=== PATIENT | female | born 1955 | race Caucasian/White ===

== ENCOUNTER 2019-04-22 08:38 | Outpatient (CLI) | payer MEDICARE, SELFPAY ==
[2019-04-22 11:45] LABS: CREATININE 0.74 mg/dL (0.55-1.02); Calculated LDL 198; Cholesterol 279 mg/dL (50-200); HDL Cholesterol 50 mg/dL (40-60); Potassium 4.8 mmol/L (3.5-5.1); Triglyceride 159 mg/dL (30-150)
== END 2019-04-22 08:58 ==
PROVIDERS: PCP Family Medicine; Visit Provider Family Medicine
DX: I10 Essential (primary) hypertension (principal)
CPT/HCPCS: 36415; 80061; 83721; 82565; 84132

== ENCOUNTER 2019-05-05 01:03 | Outpatient (CLI) | payer MEDICARE, SELFPAY ==
--- NOTE | 2019-05-05 15:48 | DI.MAMMO_ITS ---
SYMPTOMS/DIAGNOSIS: SCREENING, Z12.31 MAMMOGRAM: Mammograms were interpreted according to the usual protocol including computer analysis with CAD system, tomosynthesis and C view imaging. The breasts are of moderate density with fairly symmetrical distribution of fibroglandular tissue. No dominant mass or clumped microcalcification is identified in either breast. Current examination is compared with the previous examinations including January 2018 and there has been no gross interval change in appearnce in comparison with the previous studies. CONCLUSION: No specific evidence of malignancy at this time. Routine screening exainations are suggested at yearly intervals due to the family history of breast carcinoma. Category 1, breast density category B. MQSA ASSESSMENT OF FINDINGS: Negative. Category 1. Patient will receive a letter notifying them of these results. BI-RADS category B. There are scattered areas of fibroglandular density.
== END 2019-05-05 01:23 ==
PROVIDERS: PCP Family Medicine; Visit Provider Family Medicine
DX: Z12.31 Encounter for screening mammogram for malignant neoplasm of breast (principal); Z80.3 Family history of malignant neoplasm of breast
CPT/HCPCS: 77063; 77067

== ENCOUNTER 2020-04-27 09:41 | Outpatient (CLI) | payer MEDICARE, SELFPAY ==
[2020-04-28 02:21] LABS: COVID-19 RT-PCR UVMMC Result Negative (Negative)
== END 2020-04-27 10:01 ==
PROVIDERS: PCP Family Medicine; Visit Provider Family Medicine
DX: R06.02 Shortness of breath (principal)
CPT/HCPCS: U0003

== ENCOUNTER 2020-05-07 03:10 | Outpatient (CLI) | payer MEDICARE, SELFPAY ==
[2020-05-07 13:27] LABS: COMMENT (LAB VIEW ONLY) 51.02 mg/dL; Microalb ug/mg Crea 17.2 ug/mg Cr
[2020-05-07 13:29] LABS: CREATININE 0.89 mg/dL (0.55-1.02); Calculated LDL 181 mg/dL (<100); Cholesterol 289 mg/dL (<200); HDL Cholesterol 38 mg/dL (40-60); Potassium 3.9 mmol/L (3.5-5.1); Triglyceride 351 mg/dL (<150)
== END 2020-05-07 03:30 ==
PROVIDERS: PCP Family Medicine; Visit Provider Family Medicine
DX: I10 Essential (primary) hypertension (principal); E78.5 Hyperlipidemia, unspecified; E11.9 Type 2 diabetes mellitus without complications
CPT/HCPCS: 36415; 80061; 82043; 82565; 82570; 84132

== ENCOUNTER 2020-05-22 22:36 | Outpatient (REF) | payer MEDICARE, SELFPAY ==
[2020-05-22 21:38] LABS: HGB 14.5 g/dL (12.0-15.5); Mean Corpuscular Hemoglobin 28.3 pg (27.0-33.0); Mean Corpuscular Volume 85.9 fL (80-95); Mean Platelet Volume 11.5 fL (8.0-11.0); Platelet Count 281 x1000/uL (130-400); RBC 5.12 m/cumm (4.00-5.20); RBC Distribution Width 13.4 % (11.7-14.6); White Blood Cell Count 6.04 k/cumm (4.4-10.8)
[2020-05-22 21:56] LABS: Anion Gap 12.5 mmol/L (3-11); BUN 20 mg/dL (7-18); CO2 24.5 mmol/L (21.0-32.0); CREATININE 0.89 mg/dL (0.55-1.02); Calcium 10.1 mg/dL (8.5-10.1); Chloride 100 mmol/L (98-107); Glucose 96 mg/dL (74-106); Sodium 137 mmol/L (136-145)
== END 2020-05-22 22:56 ==
LOC: LBN 22:36
PROVIDERS: PCP Family Medicine; Visit Provider Nurse Practitioner
DX: I10 Essential (primary) hypertension (principal); R10.9 Unspecified abdominal pain
CPT/HCPCS: 80048; 85027

== ENCOUNTER 2020-05-28 01:37 | Outpatient (CLI) | payer MEDICARE, SELFPAY ==
--- NOTE | 2020-05-28 06:52 | DI.CT_ITS ---
EXAM: CT ABDOMEN PELVIS W CLINICAL HISTORY: abdominal pain- profusely tender, NL WBC,R10.9 TECHNIQUE: Imaging Protocol: Axial computed tomography images with coronal and sagittal reformatted images were created and reviewed CONTRAST MATERIAL: Intravenous: Omnipaque 350 Contrast volume:100 mL Oral: Yes COMPARISON: CT ABD PELVIS WITH CONTRAST from 04/23/2017 FINDINGS: ABDOMEN: Lung Bases: Normal where visualized. Liver: Fatty infiltration of the liver. No measurable mass. Portal, Superior Mesenteric, and Splenic Veins: Unremarkable. Gallbladder and Biliary Tract: No radiodense calculus or dilation. Pancreas: Normal density, no abnormal calcifications or inflammatory process. Spleen: Normal. Adrenals: No masses seen. Kidneys: Normal size, contour and axis. No radiodense stones or obstructive uropathy. Multiple bilate ral simple renal cysts. Abdominal Aorta: Abdominal portion non-dilated. Atherosclerosis. Left renal vein: Circum aortic left renal vein. Bowel: No obstruction or bowel wall thickening. Appendix is unremarkable. Extensive colonic diverticu losis but no evidence of acute diverticulitis. Small hiatal hernia. Peritoneal Cavity: No ascites, collection or mesenteric inflammatory response. Lymph Nodes: Within normal limits. Bones: Degenerative changes. Soft Tissues: Unremarkable. PELVIS: Bladder: Symmetric distention, no gross wall thickening. Reproductive Organs: Unremarkable as visualized. Lymph Nodes: Within normal limits. Bones: Degenerative changes. IMPRESSION: No evidence of an acute abdominal or pelvic process. Incidental findings in the abdomen and pelvis as described above. RADIATION DOSE DELIVERED: Total DLP DATA REPOSITORY: All CT scans at this facility are submitted to the National Radiology Data Registry (NRDR) Dose Index Registry (DIR) with the [employer] (ACR). RADIATION OPTIMIZATION: All CT scans at this facility use at least one of these dose optimization te chniques: automated exposure control; mA and/or kV adjustment per patient size (includes targeted exa ms where dose is matched to clinical indication); or iterative reconstruction.
[2020-05-28] MEDS: Breeza Beverage 473 ML BTL PO ×3 (08:01→08:07)
[2020-05-28] MEDS: Omnipaque 350 MG/ML 50 ML BTL IJ (08:05)
[2020-05-28] MEDS: Omnipaque 350 MG/ML 100 ML BTL IJ (09:31)
[2020-05-28] MEDS: Normal Saline - Diluent 50 ML VIAL IV (09:34)
== END 2020-05-28 01:57 ==
PROVIDERS: PCP Family Medicine; Visit Provider Nurse Practitioner
DX: R10.9 Unspecified abdominal pain (principal); K57.30 Diverticulosis of large intestine without perforation or abscess without bleeding
CPT/HCPCS: 74177; J3490; Q9967

== ENCOUNTER 2021-06-11 03:25 | Outpatient (CLI) | payer MEDICARE, SELFPAY ==
[2021-06-11 12:26] LABS: CREATININE 0.8 mg/dL (0.55-1.02); Calculated LDL 213 mg/dL (<100); Cholesterol 324 mg/dL (<200); HDL Cholesterol 42 mg/dL (40-60); Triglyceride 345 mg/dL (<150)
== END 2021-06-11 03:26 | disposition home or self-care (01) ==
LOC: LOS 03:28
PROVIDERS: PCP Family Medicine; Visit Provider Family Medicine
DX: I10 Essential (primary) hypertension (principal); E78.5 Hyperlipidemia, unspecified; E11.65 Type 2 diabetes mellitus with hyperglycemia
CPT/HCPCS: 36415; 80061; 82565; 84132

== ENCOUNTER 2021-06-24 01:59 | Outpatient (CLI) | payer MEDICARE, SELFPAY ==
--- NOTE | 2021-06-24 08:15 | DI.MAMMO_ITS ---
Exam(s) MAMMO SCREENING EXAM: MAMMO SCREENING CLINICAL HISTORY: screening,Z12.39. TECHNIQUE: Bilateral full field digital CC and MLO mammographic images were obtained with 3D tomosyn thesis and utilizing computer aided detection (CAD). COMPARISON: Prior mammograms dating back to 2011, the most recent being April 2019.. Family history. Her mother had breast cancer diagnosed in her late 60s. FINDINGS: There has been no significant change in the appearance and distribution of the fibroglandular tissue. There are no new spiculated masses nor malignant appearing microcalcification groups. There is no significant architectural distortion nor skin thickening-retraction. IMPRESSION: No radiographic evidence of malignancy. BI-RADS Category 1 - Negative Breast Density - Category B - Scattered areas of fibroglandular density Breast density Category C or D implies that the patient has dense breast tissue. Dense breast tissue can make it harder to find cancer on a mammogram. Dense breast tissue is also associated with an incr eased risk of breast cancer. This information about the result of the mammogram report was provided to the patient to raise their awareness. Use this report when you speak with the patient about their risks for breast cancer, which includes their family history. At that time, you may recommend additional screening tests (Ultrasoun d or MRI) as these tests may add significant information. A negative radiographic report should not delay biopsy if a dominant or clinically suspicious mass is present. Up to ten percent of cancers are not identified on mammography. A negative report may reinforce clinical impression. Adenosis and dense breasts may obscure an underlying neoplasm. False positive reports average 6 to 10%. Patient will receive a letter notifying them of these results.
== END 2021-06-24 02:19 ==
PROVIDERS: PCP Family Medicine; Visit Provider Family Medicine
DX: Z12.31 Encounter for screening mammogram for malignant neoplasm of breast (principal); Z80.3 Family history of malignant neoplasm of breast
CPT/HCPCS: 77063; 77067

== ENCOUNTER 2022-06-13 01:02 | Outpatient (CLI) | payer MEDICARE, SELFPAY ==
[2022-06-13 12:49] LABS: Anion Gap 8.1 mmol/L (3-11); BUN 25 mg/dL (7-18); CO2 27.9 mmol/L (21.0-32.0); CREATININE 0.7 mg/dL (0.55-1.02); Calcium 9.1 mg/dL (8.5-10.1); Calculated LDL 230 mg/dL (<100); Chloride 102 mmol/L (98-107); Cholesterol 304 mg/dL (<200); Glucose 101 mg/dL (74-106); HDL Cholesterol 48 mg/dL (40-60); Sodium 138 mmol/L (136-145); Triglyceride 131 mg/dL (<150)
== END 2022-06-13 01:03 | disposition home or self-care (01) ==
LOC: LOS 01:04
PROVIDERS: PCP Family Medicine; Visit Provider Family Medicine
DX: E78.5 Hyperlipidemia, unspecified (principal); E87.1 Hypo-osmolality and hyponatremia
CPT/HCPCS: 36415; 80048; 80061

== ENCOUNTER 2022-08-03 18:18 | Emergency (ER) | payer MEDICARE, SELFPAY ==
[2022-08-03 18:24] VITALS: BP 138/79; PULSE 87; RESP 18; TEMP 36.6; O2SAT 96
[2022-08-03 19:04] LABS: Abs Immature Grans 0.01 10^3/uL (0.0-0.06); Absolute Basophil Count 0.02 10^3/uL (0.0-0.2); Absolute Lymphocyte Count 1.98 10^3/uL (1.2-3.4); Absolute Monocyte Count 0.45 10^3/uL (0.1-0.8); Absolute Neutrophil Count 3.61 10^3/uL (1.2-6.7); Basophils % 0.3; Eosinophils % 1.6; HCT 43.9 % (36.0-46.0); HGB 14.5 g/dL (11.2-15.7); Immature Grans % 0.2; Lymphocytes % 32.1; MCH 27.6 pg (27.0-33.0); MCV 84 fL (80-95); MPV 11.1 fL (8.0-11.0); Monocytes % 7.3; Neutrophils % 58.5; Platelet Count 241 10^3/uL (130-400); RBC 5.25 10^6/uL (3.93-5.22); RDW 12.8 % (11.7-14.6); RDW-SD 39.1 fL; WBC 6.17 10^3/uL (4.4-10.8)
[2022-08-03 19:10] LABS: Bilirubin Negative (Negative); Blood Negative (Negative); Clarity Clear (Clear); Glucose Negative (Negative); Ketones Negative (Negative); Leukocyte Esterase Trace (Negative); Nitrite Negative (Negative); Specific Gravity 1.015 (1.005-1.025); Urobilinogen 0.2 EU/dL (Up TO 0.2); pH 5.5 (5-8)
--- NOTE | 2022-08-03 19:10 | W.ED.GENAD ---
Discharge Plan Disposition Patient Disposition: HOME Condition: Stable Discharge Details Clinical Impression: Diverticulitis, Disorder of Bartholin's gland Primary Care Provider: Ernesto Orellana ED Provider: Walker Ghosh Home Meds and New Rx's Prescriptions: Continued krill oil 500 mg capsule See Rx Instructions PO DAILY Rx Instructions: Q1 400mg Capsules PO DAILY orally daily; cholecalciferol (vitamin D3) 50 mcg (2,000 unit) tablet 50 mcg PO DAILY amoxicillin-pot clavulanate 875-125 mg tablet 1 tab PO TID Qty: 21 0RF loratadine [Allergy Relief (loratadine)] 10 mg tablet 10 mg PO DAILY Qty: 90 3RF vitamin B complex [B Complex-Vitamin B12] Tablet 1 tab PO DAILY lisinopril-hydrochlorothiazide 20-25 mg tablet 1 tab PO DAILY Qty: 90 3RF Rx Instructions: 02/2018 increased dose/take one tablet daily calcium carb and citrat-mag ox 200 mg calcium- 50 mg tablet PO Hair,Skin and Nails Tablet 1 tab PO DAILY omeprazole 20 mg capsule,delayed release(DR/EC) 20 mg PO DAILY Qty: 90 3RF rosuvastatin 20 mg tablet 20 mg PO DAILY Qty: 90 3RF Discharge Instructions Instructions: Diverticulitis (ED) Additional Instructions: CT reveals mild diverticulitis, please continue your Augmentin as directed. Hydrocodone take-home pack as directed, this medication may cause drowsiness and constipation. You may also take [id number] medications for symptomatic control. The CT incidentally found an enlarged Bartholin gland which needs to be followed by women's health. I have placed you on their list to help expedite outpatient care. Please contact your primary care provider and women's health tomorrow to discuss your ER visit and need for outpatient reevaluation peer Referrals: [facility] [Provider [facility]] Medical Decision Making 67-year-old female being treated with Augmentin for presumptive diverticulitis for the past 5 days reports that diarrhea began today, concern for worsening symptoms, came for CT imaging. Clinically she appears well, nontoxic, nonfebrile, abdomen is benign on acute. She does have mild lower abdominal discomfort. Plan is to obtain IV access and obtain routine screening laboratory values and CT imaging. Laboratory values are unremarkable. Patient reports increased pain, 4 mg IV morphine provided. Patient reports significant relief CT imaging reveals mild diverticulitis as well as an enlarged right Bartholin gland Discussed findings with patient. Given her lack of fever or elevated white count, only mild diverticulitis, I do not believe that dual therapy is indicated and she will continue with her Augmentin. Given her enlarged right Bartholin gland, I have placed her on the care management list to help expedite outpatient women's wellness evaluation and I will give her a referral. I will also give her a take-home pack of hydrocodone. Standard discharge and return precautions were provided. Patient understands, is agreeable to this plan, and has no additional questions or concerns upon discharge. This documentation was generated using [employer] system, please disregard any oddities of phrase or misspellings. Medical Records Medical records reviewed: Yes I reviewed the patient's medical records. Imaging Data Radiologic Study: Attestation: I personally reviewed and interpreted this imaging study as follows: Imaging: CT Scan Radiologist's impression: PROCEDURE INFORMATION: Exam: CT Abdomen And Pelvis With Contrast Exam date and time: 08/03/2022 8:22 PM Age: 67 years old Clinical indication: Abdominal pain; Localized; Left lower quadrant (llq); Patient HX: Llq pain, concern for diverticulitis TECHNIQUE: Imaging protocol: Computed tomography of the abdomen and pelvis with contrast. COMPARISON: CT ABDOMEN PELVIS W 05/28/2020 9:22 AM FINDINGS: Lungs: The visualized lung hyde show mild bibasilar atelectasis. Diaphragm: There is a small sliding hiatal hernia. Liver: No hepatomegaly. There are no enhancing liver masses. Gallbladder and bile ducts: No calcified stones. No ductal dilation. Pancreas: Normal in size and homogeneous enhancement. No ductal dilation. Spleen: Normal. No splenomegaly. Adrenal glands: Normal. No mass. Kidneys and ureters: There is redemonstration of multiple simple appearing bilateral renal cysts as large as 4 cm. Stomach and bowel: There is no evidence of small bowel or colonic obstruction. There is extensive diverticulosis throughout the splenic flexure, descending colon sigmoid. At the junction of the distal descending colon sigmoid, there is a segment of colonic wall thickening and mild pericolonic stranding there is suspicious for early or mild acute diverticulitis (series 4, images 54 - 62; series 6, images 50 - 60). Appendix: No evidence of appendicitis. Intraperitoneal space: No free air. No significant fluid collection Vasculature: There is moderate atherosclerotic calcification of the abdominal aorta and its branches without aneurysm. There is a circumaortic left renal vein without thrombosis. There is a moderately prominent left gonadal vein. Lymph nodes: No enlarged retroperitoneal or mesenteric lymph nodes. Urinary bladder: The bladder shows a normal contour and is free of calcific opacities. Reproductive: Unremarkable as visualized. Bones/joints: No acute fracture. At L5-S1, there is degenerative disc disease, vacuum disc and facet arthrosis. There is moderate left neural foraminal narrowing. Soft tissues: In the perineum, along the right vaginal wall, there is an enlarged Bartholin gland measuring 2.3 x 1.5 cm with density measurements above serous fluid (31.8 Hounsfield units). Other findings: There is no evidence of abscess or perforation. IMPRESSION: 1. Mild diverticulitis suspected at the junction of the descending colon sigmoid. Clinical correlation is necessary. As there is colonic wall thickening, consider a follow-up diagnostic examination such as colonoscopy after course of treatment to exclude underlying neoplasm, if clinically indicated. 2. Enlarged right Bartholin gland. Given the patient's age, Bartholin gland tumor is of primary consideration. The differential diagnosis includes Bartholin gland cyst and abscess, which are considered less likely. 3. Additional non emergent findings as above. Lab Data Lab results reviewed: Yes I reviewed the patient's lab results. Labs: Laboratory Tests Range/Units 08/03/22 08/03/22 08/03/22 18:56 18:56 18:57 WBC (4.4-10.8) 10^3/uL 6.17 RBC (3.93-5.22) 10^6/uL 5.25 H Hgb (11.2-15.7) g/dL 14.5 Hct (36.0-46.0) % 43.9 MCV (80-95) fL 84 MCH (27.0-33.0) pg 27.6 MCHC (32.0-36.0) % 33.0 RDW (11.7-14.6) % 12.8 Plt Count (130-400) 10^3/uL 241 MPV (8.0-11.0) fL 11.1 H Immature Gran % 0.2 Neutrophils % 58.5 Lymphocytes % 32.1 Monocytes % 7.3 Eosinophils % 1.6 Basophils % 0.3 Nucleated RBC % (0.0-0.3) % 0.0 Absolute Neutrophils (1.2-6.7) 10^3/uL 3.61 Absolute Lymphocytes (1.2-3.4) 10^3/uL 1.98 Absolute Monocytes (0.1-0.8) 10^3/uL 0.45 Absolute Eosinophils (0.0-0.7) 10^3/uL 0.10 Absolute Basophils (0.0-0.2) 10^3/uL 0.02 Sodium (136-145) mmol/L 138 Potassium (3.5-5.1) mmol/L 3.9 Chloride (98-107) mmol/L 101 Carbon Dioxide (21.0-32.0) mmol/L 27.9 Anion Gap (3-11) mmol/L 9.1 BUN (7-18) mg/dL 16 Creatinine (0.55-1.02) mg/dL 0.9 Est GFR (CKD-EPI 2020) (mL/min/1.73m2) 69.20 Glucose (74-106) mg/dL 97 Calcium (8.5-10.1) mg/dL 9.7 Total Bilirubin (0.2-1.0) mg/dL 0.5 AST (15-37) U/L 36 ALT (14-59) U/L 30 Alkaline Phosphatase (46-116) U/L 91 Total Protein (6.4-8.2) g/dL 8.0 Albumin (3.4-5.0) g/dL 4.3 Lipase (73-393) U/L 150 Urine Color (Yellow) Yellow Urine Clarity (Clear) Clear Urine pH (5-8) 5.5 Ur Specific [place] (1.005-1.025) 1.015 Urine Protein (Negative) mg/dL Negative Urine Ketones (Negative) mg/dL Negative Urine Blood (Negative) Negative Urine Nitrite (Negative) Negative Urine Bilirubin (Negative) Negative Urine Urobilinogen (Up TO 0.2) EU/dL 0.2 Ur Leukocyte Esterase (Negative) Trace H Urine RBC (0-2) HPF 0-2 Urine WBC (0-5) HPF 3-5 Ur Epithelial Cells (Negative) HPF Many Urine Crystals (Negative) HPF Negative Urine Bacteria (Negative) HPF Rare Urine Mucus (Negative) Negative Ur Culture Indicated? No/Sq. Contamination Urine Glucose (Negative) mg/dL Negative HPI General Mode of arrival: ambulatory. Date/Time Provider Initiated Documentation: 08/03/22 18:33. Limitations to Documentation: no limitations. Information obtained by: patient. HPI Narrative: This is a 67-year-old female presenting for lower abdominal pain, bloating, diarrhea that began today, concern for diverticulitis. Patient reports being diagnosed with diverticulitis over a decade ago. Symptoms developed 1 week ago, she was seen at the urgent care earlier this week and placed on Augmentin, told if she got worse to go to the ER for CT imaging. Diarrhea began today so she came to the ER. She denies any fever, nausea, vomiting, back pain, dysuria, black tarry stools or bright red blood in her stools. Related Data Home Medications Medication Instructions Recorded Confirmed loratadine 10 mg tablet (Allergy 10 mg PO DAILY #90 tabs 04/27/20 08/03/22 Relief (loratadine)) calcium tab PO 05/22/20 06/11/22 carbonate,citrate-magnesium oxide 200 mg calcium-50 mg tablet multivitamin with minerals 1 tab PO DAILY 05/22/20 08/03/22 (Hair,Skin and Nails tablet) lisinopril 20 1 tab PO DAILY #90 tab-caps 06/05/21 08/03/22 mg-hydrochlorothiazide 25 mg tablet vitamin B complex (B 1 tab PO DAILY 06/05/21 08/03/22 Complex-Vitamin B12 tablet) omeprazole 20 mg capsule,delayed 20 mg PO DAILY #90 caps 01/21/22 08/03/22 release cholecalciferol (vitamin D3) 50 50 mcg PO DAILY 06/11/22 08/03/22 mcg (2,000 unit) tablet krill oil 500 mg capsule See Rx Instructions PO DAILY 06/11/22 08/03/22 rosuvastatin 20 mg tablet 20 mg PO DAILY #90 tabs 06/20/22 08/03/22 amoxicillin 875 mg-potassium 1 tab PO TID #21 tabs 07/29/22 08/03/22 clavulanate 125 mg tablet Previous Rx's Medication Instructions Recorded loratadine 10 mg tablet (Allergy 10 mg PO DAILY #90 tabs 04/27/20 Relief (loratadine)) lisinopril 20 1 tab PO DAILY #90 tab-caps 06/05/21 mg-hydrochlorothiazide 25 mg tablet omeprazole 20 mg capsule,delayed 20 mg PO DAILY #90 caps 01/21/22 release rosuvastatin 20 mg tablet 20 mg PO DAILY #90 tabs 06/20/22 amoxicillin 875 mg-potassium 1 tab PO TID #21 tabs 07/29/22 clavulanate 125 mg tablet Allergies Allergy/AdvReac Type Severity Reaction Status Date / Time peanut Allergy Severe THROAT Verified 08/03/22 18:31 SWELLING venlafaxine HCl Allergy Severe Swelling/Edema, Verified 08/03/22 18:31 [From Effexor] hives paroxetine HCl [From Paxil] AdvReac Severe NAUSEA, Verified 08/03/22 18:31 DIZZINESS tree nuts Allergy Intermediate itching,throat Uncoded 08/03/22 18:31 closes General Stated Complaint: Abd Prob BARBARA: 3 Review of Systems Constitutional Constitutional: Denies fever(s) Cardiovascular Cardiovascular: Denies chest pain and Denies dyspnea Respiratory Respiratory: Denies dyspnea Gastrointestinal Gastrointestinal: Reports abdominal pain, Denies melena, Denies hematochezia, Reports diarrhea, Denies nausea and Denies vomiting Genitourinary Genitourinary: Denies abnormal vaginal bleeding, Denies dysuria and Denies vaginal discharge Musculoskeletal Musculoskeletal: Denies back pain Integumentary/Breasts Skin/Breast: Denies rash Hematologic/Lymphatic Hematologic/Lymphatic: Denies easy bleeding and Denies easy bruising PFSH All Active Problems Diverticulitis (Chronic) Disorder of Bartholin's gland (Acute) Hearing loss (Acute) Abdominal pain (Acute) Pruritic dermatitis (Acute) prn OTC HC cream recommended avoid excess sun Abnormal glandular Papanicolaou smear of cervix (Acute) neg. HPV Anxiety (Acute) Arthrosis of right acromioclavicular joint (Acute 10/15/16) Carpal tunnel syndrome (Acute) Complete tear of right rotator cuff (Acute 03/05/16) Depressive disorder (Acute) Essential hypertension (Acute 10/26/13) Family hx-breast malignancy (Acute) History of bilateral ligation of fallopian tubes (Acute) History of tobacco use (Acute) Hyperlipidemia (Acute) Primary fibromyalgia syndrome (Acute) Sensorineural hearing loss, bilateral (Acute 11/12/17) Sleep disorder (Acute 10/27/13) Tinnitus, bilateral (Acute 11/12/17) White coat syndrome with hypertension (Acute 02/12/16) Medical History Anxiety Hypertension Mood disorder Surgical History Ligation of fallopian tube Rotator Cuff Repair 10/24 RIGHT Family History Mother Diabetes ADULT Breast cancer Father Diabetes Essential hypertension Heart disease CAD Myocardial infarction Sister Diabetes Depression Hyperlipidemia Brother Diabetes Hyperlipidemia Giant cell arteritis Maternal Grandfather Stroke Paternal Grandfather No problems noted. Maternal Grandmother Diabetes Uterine cancer Paternal Grandmother No problems noted. Sister Diabetes Depression Hyperlipidemia Brother Diabetes Essential hypertension Heart disease Hyperlipidemia Son Depression Hyperlipidemia Son No problems noted. Son Depression Daughter Depression Hyperlipidemia Asthma Social History Smoking/Tobacco Use Status: Former Tobacco Use Quit Date: 11/09/87 Tobacco: How many years used: 14 Smoking risk assessment performed?: Yes Alcohol Intake: current Alcohol Intake frequency: holidays/special occasions only Alcohol type: beer, wine and hard liquor Drug use: Rarely Substance use type: marijuana Caregiver/Support person: No Household members: spouse Housing: other Details: RV Communication Needs: None Do you need help understanding health information?: Rarely Pets and animals: Yes Pets and animals: dog(s) Sexually active: No Do you think of yourself as: straight/heterosexual Current gender identity: female What is your relationship status?: How often do you talk on the phone with friends or family?: once per week How often do you get together with friends or relatives?: never How often do you attend anabaptism or synagogue services?: 1-3 times per year Do you belong to any clubs or organized social groups?: no Panel score (0-1 are the most socially isolated patients): 1 Claribel/Islam: Christianity Special claribel needs: No Seatbelt use: always Drive intox or ride w/intox trolley coach driver: No Do you feel safe at home: Yes Do you feel safe in your relationship?: Yes Exam Const General: cooperative, healthy appearing, comfortable and no acute distress Orientation: alert and awake [facility] Head: normal to inspection, normocephalic and atraumatic Face and sinus: normal facial exam Mouth: moist mucous membranes Eyes General: appearance normal, both eyes and all related structures Conjunctivae: conjunctivae normal Neck Neck: normal visual inspection, full ROM, no meningeal signs, trachea midline and supple Resp Effort & Inspection: normal respiratory effort and able to speak in complete sentences Auscultation: clear to auscultation bilaterally Cardio Rate: regular rate Rhythm: regular rhythm GI Inspection: normal to inspection Palpation: soft, not firm, no guarding, no pulsatile masses and tender (Diffuse mild lower) not at McBurney's point and with no rebound tenderness Auscultation: normal bowel sounds Back/Spine/Pelvis Back: No back tenderness Skin General skin exam: no rashes or lesions noted Neuro General: patient alert, patient awake, moves all extremities and no focal motor deficits Sensory Exam: no sensory deficits noted Psych Appearance: grossly normal Mental Status: mental status grossly normal Course Vital Signs Vital signs: Vital Signs Temperature 36.6 C 08/03/22 18:24 Pulse 87 08/03/22 18:24 Respiratory Rate 18 08/03/22 18:24 Blood Pressure 138/79 08/03/22 18:24 Pulse Oximetry 96 08/03/22 18:24 Temperature 36.6 C 08/03/22 18:24 Temperature Source Temporal Artery Scan 08/03/22 18:24 Pulse 87 08/03/22 18:24 Respiratory Rate 18 08/03/22 18:24 Respiratory Effort Non-Labored 08/03/22 18:29 Blood Pressure 138/79 08/03/22 18:24 Blood Pressure Position Sitting 08/03/22 18:24 Pulse Oximetry 96 08/03/22 18:24 Oxygen Delivery Method Room Air 08/03/22 18:24 Oxygen Flow Rate 0 08/03/22 18:24 Pain Level 6 08/03/22 18:24 Lab/Test Results Lab/Test Results: Laboratory Tests Range/Units 08/03/22 18:56 WBC (4.4-10.8) 10^3/uL 6.17 RBC (3.93-5.22) 10^6/uL 5.25 H Hgb (11.2-15.7) g/dL 14.5 Hct (36.0-46.0) % 43.9 MCV (80-95) fL 84 MCH (27.0-33.0) pg 27.6 MCHC (32.0-36.0) % 33.0 RDW (11.7-14.6) % 12.8 Plt Count (130-400) 10^3/uL 241 MPV (8.0-11.0) fL 11.1 H Immature Gran % 0.2 Neutrophils % 58.5 Lymphocytes % 32.1 Monocytes % 7.3 Eosinophils % 1.6 Basophils % 0.3 Nucleated RBC % (0.0-0.3) % 0.0 Absolute Neutrophils (1.2-6.7) 10^3/uL 3.61 Absolute Lymphocytes (1.2-3.4) 10^3/uL 1.98 Absolute Monocytes (0.1-0.8) 10^3/uL 0.45 Absolute Eosinophils (0.0-0.7) 10^3/uL 0.10 Absolute Basophils (0.0-0.2) 10^3/uL 0.02
[2022-08-03 19:26] LABS: Bacteria Rare HPF (Negative); C & S Indicated? No/Sq. Contamination; Crystals Negative HPF (Negative); Epithelial Cells Many HPF (Negative); Mucus Negative (Negative); RBC 0-2 HPF (0-2)
[2022-08-03 19:34] LABS: ALT 30 U/L (14-59); AST 36 U/L (15-37); Albumin 4.3 g/dL (3.4-5.0); Alkaline Phosphatase 91 U/L (46-116); Anion Gap 9.1 mmol/L (3-11); BUN 16 mg/dL (7-18); Bilirubin, Total 0.5 mg/dL (0.2-1.0); CO2 27.9 mmol/L (21.0-32.0); CREATININE 0.9 mg/dL (0.55-1.02); Calcium 9.7 mg/dL (8.5-10.1); Chloride 101 mmol/L (98-107); Glucose 97 mg/dL (74-106); Lipase 150 U/L (73-393); Potassium 3.9 mmol/L (3.5-5.1); Sodium 138 mmol/L (136-145)
--- NOTE | 2022-08-03 19:45 | DI.CT_ITS ---
Exam(s) CT ABDOMEN PELVIS W EXAM: CT ABDOMEN PELVIS W CLINICAL HISTORY: concern for diverticulitis. TECHNIQUE: Imaging Protocol: Axial computed tomography images with coronal and sagittal reformatted images were created and reviewed CONTRAST MATERIAL: Intravenous: Omnipaque 350 Contrast volume:100 ml Oral: / no COMPARISON: CT CT ABDOMEN PELVIS W from 05/28/2020 FINDINGS: ABDOMEN: Lung Bases: Normal where visualized. Small hiatal hernia. Liver: Normal density. No measurable mass. Gallbladder and biliary tract: No radiodense calculus or dilation. Pancreas: Normal density, no abnormal calcifications or inflammatory process. Spleen: Normal. Kidneys: Normal size, contour and axis. No radiodense stones or obstructive uropathy. Multiple bilate ral cysts. Adrenal glands: No masses seen. Abdominal Aorta: Abdominal portion non-dilated. Atherosclerotic changes. PELVIS: Bladder: No gross wall thickening. No calculi.No focal mass. Bowel: Extensive diverticulosis. Question of mild inflammation junction of descending and sigmoid co jerri. No obstruction or bowel wall thickening. Appendix normal. Peritoneal cavity: No ascites, collection or mesenteric inflammatory response. Bones: Degenerative changes. Reproductive organs: 2.3 x 1.5 centimeter Bartholin gland cyst in the right vaginal wall. Lymph nodes: Unremarkable. Impression: Extensive diverticulosis. Question of mild diverticulitis at the junction of the descending and sigm oid colon. No evidence of abscess or perforation. Bartholin's gland cyst is incidental noted. RADIATION DOSE DELIVERED: 1,133.51mGy.cm Total DLP DATA REPOSITORY: All CT scans at this facility are submitted to the National Radiology Data Registry (NRDR) Dose Index Registry (DIR) with the [employer] (ACR). RADIATION OPTIMIZATION: All CT scans at this facility use at least one of these dose optimization te chniques: automated exposure control; mA and/or kV adjustment per patient size (includes targeted exa ms where dose is matched to clinical indication); or iterative reconstruction.
--- NOTE | 2022-08-03 21:46 | DI.VRAD_ITS ---
PROCEDURE INFORMATION: Exam: CT Abdomen And Pelvis With Contrast Exam date and time: 08/03/2022 8:22 PM Age: 67 years old Clinical indication: Abdominal pain; Localized; Left lower quadrant (llq); Patient HX: Llq pain, concern for diverticulitis TECHNIQUE: Imaging protocol: Computed tomography of the abdomen and pelvis with contrast. COMPARISON: CT ABDOMEN PELVIS W 05/28/2020 9:22 AM FINDINGS: Lungs: The visualized lung hyde show mild bibasilar atelectasis. Diaphragm: There is a small sliding hiatal hernia. Liver: No hepatomegaly. There are no enhancing liver masses. Gallbladder and bile ducts: No calcified stones. No ductal dilation. Pancreas: Normal in size and homogeneous enhancement. No ductal dilation. Spleen: Normal. No splenomegaly. Adrenal glands: Normal. No mass. Kidneys and ureters: There is redemonstration of multiple simple appearing bilateral renal cysts as large as 4 cm. Stomach and bowel: There is no evidence of small bowel or colonic obstruction. There is extensive diverticulosis throughout the splenic flexure, descending colon sigmoid. At the junction of the distal descending colon sigmoid, there is a segment of colonic wall thickening and mild pericolonic stranding there is suspicious for early or mild acute diverticulitis (series 4, images 54 - 62; series 6, images 50 - 60). Appendix: No evidence of appendicitis. Intraperitoneal space: No free air. No significant fluid collection. Vasculature: There is moderate atherosclerotic calcification of the abdominal aorta and its branches without aneurysm. There is a circumaortic left renal vein without thrombosis. There is a moderately prominent left gonadal vein. Lymph nodes: No enlarged retroperitoneal or mesenteric lymph nodes. Urinary bladder: The bladder shows a normal contour and is free of calcific opacities. Reproductive: Unremarkable as visualized. Bones/joints: No acute fracture. At L5-S1, there is degenerative disc disease, vacuum disc and facet arthrosis. There is moderate left neural foraminal narrowing. Soft tissues: In the perineum, along the right vaginal wall, there is an enlarged Bartholin gland measuring 2.3 x 1.5 cm with density measurements above serous fluid (31.8 Hounsfield units). Other findings: There is no evidence of abscess or perforation. IMPRESSION: 1. Mild diverticulitis suspected at the junction of the descending colon sigmoid. Clinical correlation is necessary. As there is colonic wall thickening, consider a follow-up diagnostic examination such as colonoscopy after course of treatment to exclude underlying neoplasm, if clinically indicated. 2. Enlarged right Bartholin gland. Given the patient's age, Bartholin gland tumor is of primary consideration. The differential diagnosis includes Bartholin gland cyst and abscess, which are considered less likely. 3. Additional non emergent findings as above. Findings were discussed with Walker Ghosh at 08/03/2022 9:44 PM EDT. Dictated and Authenticated by: Milad Rangel MD. Ordering:ELISABET Cardoso MD
--- NOTE | 2022-08-03 21:54 | NUR.NOTE ---
Referral faxed to [facility] to f/u mireille for an enlarged barthalon cyst, concerns for vaginal cancer.Nursing Note:
[2022-08-03 22:03] VITALS: BP 121/71; PULSE 75; RESP 18; TEMP 36.8; O2SAT 94
[2022-08-03] MEDS: MORPHine 4 MG/ML SYR IVP (22:25)
[2022-08-03] MEDS: Normal Saline Flush 10 ML SYR IVP (22:30)
== END 2022-08-03 22:50 | disposition home or self-care (01) ==
PROVIDERS: Emergency Provider Physician Assistant; PCP Family Medicine
DX: K57.92 Diverticulitis of intestine, part unspecified, without perforation or abscess without bleeding (principal); N75.9 Disease of Bartholin's gland, unspecified; I10 Essential (primary) hypertension; Z87.891 Personal history of nicotine dependence
CPT/HCPCS: 80053; 83690; 96374; 99285; 74177; 81003; 81015; 85025; 99284; J2270